=== PATIENT | female | born 1960 | race Caucasian/White ===

== ENCOUNTER → 2018-03-23 | Outpatient (CLI) | payer OTHER ==
[~2018-03-23] MED LIST: ALBUTEROL INHAL17 GM IH; AZITHROMYCIN; NORCO 5-325 TA1 EACH PO
== END ==
LOC: M.RAD 16:30
DX: Z12.31 Encounter for screening mammogram for malignant neoplasm of breast (principal)

== ENCOUNTER 2018-05-14 00:37 | Inpatient (IN) | payer OTHER ==
[~2018-05-14] VITALS: Ht 170.2 cm; Wt 77.6 kg
[2018-05-14 00:41] VITALS: BP 152/79
[2018-05-14] MEDS ORDERED: NITROGLYCERIN0.4 MG SUBLING (00:54)
[2018-05-14] MEDS ORDERED: ATENOLOL 100MG100 MG PO (00:55)
[2018-05-14] MEDS ORDERED: ASPIR 8181 M1 PO (00:56)
[2018-05-14] MEDS ORDERED: LIPITOR80 MG PO (00:56)
[2018-05-14] MEDS ORDERED: PLAVIX 75 MG TA75 M1 PO (00:56)
[2018-05-14 01:25] LABS: ABSOLUTE EOSINOPHILS 0.1 thou/uL (0.0-0.7); ABSOLUTE MONOCYTES 0.4 thou/uL (0.0-1.2); ABSOLUTE NEUTROPHILS 2.6 thou/uL (1.6-8.1); BASOPHILS 0.5 %; EOSINOPHILS 0.9 %; HEMATOCRIT 41.3 % (37.0-47.0); HEMOGLOBIN 13.8 gm/dL (12.0-15.0); LYMPHOCYTES 48.5 %; MCH 31.1 pg (26.0-34.0); MCHC 33.4 g/dL (28.0-37.0); MCV 93.1 fL (80.0-100.0); MONOCYTES 7.2 %; MPV 8.6 fl. (7.2-11.1); NUCLEATED RBCS 0 /100WBC; PLATELET COUNT* 280 thou/uL (150-400); POLYS 42.9 %; RBC 4.44 mil/uL (4.20-5.00); WBC 6.1 thou/uL (4.0-11.0)
[2018-05-14 01:35] LABS: PROTIME 10.7 Seconds (9.20-11.50)
[2018-05-14 02:03] LABS: URINE BILIRUBIN NEGATIVE (Negative); URINE BLOOD TRACE (Negative); URINE CLARITY CLEAR; URINE COLOR YELLOW; URINE GLUCOSE-RANDOM NEGATIVE (Negative); URINE KETONES NEGATIVE (Negative); URINE LEUKOCYTES-REFLEX TRACE (Negative); URINE NITRITE-REFLEX NEGATIVE (Negative); URINE PROTEIN NEGATIVE (Negative); URINE SPECIFIC GRAVITY <= 1.005 (1.005-1.030); URINE UROBILINOGEN 0.2 E.U./dl (0.2-1.0)
[2018-05-14 03:27] LABS: ALBUMIN 3.9 g/dL (3.4-5.0); CALCIUM 9.1 mg/dL (8.5-10.1); POTASSIUM 3.5 mmol/L (3.5-5.1); TOTAL BILIRUBIN 0.3 mg/dL (<0.1-1.0); TOTAL PROTEIN 6.6 g/dL (6.4-8.2)
[2018-05-14 03:39] LABS: CASTS None Seen /LPF (None Seen); SQUAMOUS >10 Many /LPF (0-3); URINE WBC-REFLEX 0-5 Rare /HPF (0-5)
[2018-05-14 03:40] LABS: BACTERIA-REFLEX 1-9 Few /HPF (None Seen); CRYSTALS None Seen /LPF (None Seen); URINE RBC 0-2 Rare /HPF (0-2)
[2018-05-14 03:57] LABS: INFLUENZA A ANTIGEN None Detected (None Detect); INFLUENZA B ANTIGEN None Detected (None Detect)
--- NOTE | 2018-05-14 04:29 | NUR ---
PT ASSISTED TO BATHROOM WITH STEADY GAIT. REPORTS FEELING A LITTLE NAUSEATED DUE TO THE NITRO PASTE. DR. [place] NOTIFIED, AND ORDERS RECEIVED TO REMOVED THE NITRO PASTE.
[2018-05-14 07:28] VITALS: BP 117/54
--- NOTE | 2018-05-14 09:54 | NUR ---
PT GIVEN REGULAR DIET BREAKFAST TRAY.
--- NOTE | 2018-05-14 10:09 | NUR ---
DR. ARREGUIN ORDERED PT'S MORNING MEDICATIONS, PHARMACY PREPARED THESE MEDICATIONS AND THEY WERE ADMINISTERED ONCE AVAILABLE FROM PHARMACY.
[2018-05-14 10:32] VITALS: BP 117/54
--- NOTE | 2018-05-14 12:33 | NUR ---
PT ADMITTED FROM ED WITH CHEST PAIN THAT STRATED YESTERDAY AFTERNOON. PT REPORTS IT IS WORSE AFTER EATING. PAIN CURRENTLY REPORTED 5/10 BURNING EPIGASTRIC THAT STABS THROUGH TO BACK. TELE SR, HRR. PT UP INDEPENDENTLY IN ROOM, ABLE TO MAKE NEEDS KNOWN, CALL LIGHT IN REACH
--- NOTE | 2018-05-14 14:20 | NUR ---
pt leaving ama. pt signed ama form and understands risks involved.
--- NOTE | 2018-05-14 14:40 | NUR ---
pt has now agreed to stay and follow through with treatment.
[2018-05-14 15:31] LABS: APTT 25.6 Seconds (25.0-31.3); PROTIME 10.6 Seconds (9.20-11.50)
[2018-05-14 15:39] LABS: CHOLESTEROL 123 mg/dL (<200); HDL CHOLESTEROL 55 mg/dL (>40); LDL CHOLESTEROL 52 mg/dL (<100); TC:HDL 2.2 Ratio (Not establshd); TRIGLYCERIDE 81 mg/dL (<150); VLDL 16 mg/dL (<40)
[2018-05-14 15:42] LABS: SERUM ASSESSMENT Clear
[2018-05-14 16:00] VITALS: BP 101/68; BP 118/55
--- NOTE | 2018-05-14 18:38 | NUR ---
PT REPORTS FEELING MUCH BETTER AFTER MEDICATIONS GIVEN. PT TOLERATED MEALS WITHOUT C/O. PT ABLE TO MAKE NEEDS KNOWN, CALL LIGHT IN REACH
[2018-05-15] VITALS: BP 115/55
[2018-05-15 04:00] VITALS: BP 108/60
[2018-05-15 04:55] LABS: ABSOLUTE EOSINOPHILS 0.1 thou/uL (0.0-0.7); ABSOLUTE LYMPHOCYTES 2.1 thou/uL (0.8-5.3); ABSOLUTE MONOCYTES 0.3 thou/uL (0.0-1.2); ABSOLUTE NEUTROPHILS 1.5 thou/uL (1.6-8.1); BASOPHILS 0.5 %; EOSINOPHILS 1.5 %; LYMPHOCYTES 52.6 %; MCH 31.3 pg (26.0-34.0); MCHC 33.3 g/dL (28.0-37.0); MONOCYTES 8.6 %; MPV 8.3 fl. (7.2-11.1); NUCLEATED RBCS 0 /100WBC; PLATELET COUNT* 231 thou/uL (150-400); POLYS 36.8 %; RBC 4.15 mil/uL (4.20-5.00)
[2018-05-15 05:10] LABS: CREATININE 0.8 mg/dL (0.6-1.3); POTASSIUM 4.2 mmol/L (3.5-5.1)
[2018-05-15 08:18] VITALS: BP 121/55
--- NOTE | 2018-05-15 08:25 | NUR ---
PT REFUSES CATH TODAY. MACHINE TENDER MADE AWARE
--- NOTE | 2018-05-15 11:00 | EKG ---
[place] [address] ELECTROCARDIOGRAM REPORT Name: EDUARD TRIANA Room: [address] ADM IN .R.#: [id number] Admission: 05/14/18 Attend Phys: Aziza Gaming MD Discharge: Date of : 62 Report #: [id number] THIS REPORT FOR: //name// [facility] ED Test Date: 2018-05-14 Test Time: 00:46:05 Pat Name: EDUARD TRIANA Department: Room: [facility] Gender: F Centre[employer] Radio Operator: AP : 1960 Requested By: Kelly Suero Order Number: [id number] MD: Amandeep Moralez Measurements Intervals [place] Rate: 91 P: 61 ID: 148 QRS: 61 QRSD: 104 T: 57 QT: 383 QTc: 472 Interpretive Statements Sinus rhythm Left atrial enlargement RSR' in V1 or V2, right VCD or RVH Compared to ECG 09/01/2010 04:47:28 no change Electronically Signed On 05-15-2018 10:59:58 BIOMECHANICAL ENGINEER by Amandeep Moralez [email or web address] <ELECTRONICALLY SIGNED> By: Amandeep Moralez MD, [facility] 05/15/18 1059 0046 0046 Amandeep Moralez MD, [facility] /EPI
[2018-05-15] MEDS ORDERED: PANTOPRAZOLE SO40 M1 PO (11:31)
[2018-05-15 11:37] VITALS: BP 121/55
--- NOTE | 2018-05-15 11:54 | NUR ---
PT DC'D HOME WITH ALL BELONGINGS. PT GIVEN 1 RX. PT DENIED PAIN OR DISCOMFORT. PT ACKNOWLEDGED DC INSTRUCTIONS AND MEDICATIONS
--- NOTE | 2018-05-17 12:35 | CON ---
[address] [address] CONSULTATION Name: TRIANAEDUARDSUKH SHERMAN Room: [address] IN .R.#: [id number] Admission: 05/14/18 Attend Phys: Aziza Gaming MD Discharge: 05/15/18 Date of : 62 Report #: [id number] THIS REPORT FOR: //name// CC: DR EVAN NIEVES physician/PCP Aziza Gaming DATE OF SERVICE: 05/14/2018 HISTORY OF PRESENT ILLNESS: The patient is a 57-year-old single white female who I was asked to see in the hospital day after she had an episode of chest pain. The old records are not available. The patient has not previously been here to [facility]. She does have a long history of hypertension. Last year, she was having intermittent chest pain. She apparently had a stress test at [facility] that showed no significant abnormalities. However, she has visited a friend last June at [facility] in [facility]. She had an episode of chest pain. She was admitted. She underwent a cardiac catheterization from the right radial artery. She is found to have a 95% stenosis of a vessel. She has a single drug-eluting stent placed. She is placed on aspirin and Plavix. She had done well since that time. She does go to the gym on a regular basis. Recently, however, she has had intermittent chest pressure. It goes into her shoulder. It can make her diaphoretic. Yesterday, she had an episode and a friend brought her to the Emergency Room last night. She was admitted and I was asked to see her for further evaluation and treatment. She denied the pain being related to food. She has had no recent trauma to her chest. She has had no bleeding, cough. She denies exertional dyspnea, palpitations or syncope. PAST MEDICAL HISTORY: She has had previous tubal ligation. She had a breast lump removed in the past that showed cancer. She was treated with radiation therapy and chemotherapy years ago. She has a history of hypertension, hyperlipidemia. MEDICATIONS: Include Plavix, aspirin, atenolol, Lipitor. ALLERGIES: She has no known drug allergies. FAMILY HISTORY: Mother had congestive heart failure. SOCIAL HISTORY: She is , lives in [place]. She works in sales. No smoking. Rarely drinks alcohol. REVIEW OF SYSTEMS: She had no history of stroke, asthma, peptic ulcer disease, liver disease, kidney disease, cancer other than breast cancer. She has no history of psychiatric illness. No chronic skin condition. PHYSICAL EXAMINATION: [place] [address] CONSULTATION Name: EDUARD TRIANA Room: [address]#: [id number] Admission: 05/14/18 Attend Phys: Aziza Gaming MD Discharge: 05/15/18 Date of : 62 Report #: [id number] GENERAL: Revealed a middle-aged female, lying in bed. She appeared in no acute distress. VITAL SIGNS: She had a blood pressure of 120/60, pulse 70. She is afebrile. HEENT: She was anicteric, conjunctiva pink, mucous members moist. NECK: Veins nondistended. No carotid bruits. Neck supple. CHEST: Clear to auscultation. CARDIOVASCULAR: Regular rate and rhythm, no murmur. ABDOMEN: Soft, nontender. EXTREMITIES: Had no edema. Posterior tibial pulse 2+ bilaterally. SKIN: Warm, dry. NEUROLOGIC: Nonfocal. LYMPH: No adenopathy. MUSCULOSKELETAL: No joint effusion. Her work up last night, unfortunately there is no ECG in her chart at this time to review. Her chest x-ray done in the Emergency Room last night, normal heart size, clear lung stearns. LABORATORY DATA: Sodium 141, BUN 21, creatinine 1.0, glucose 113. Troponin 0.06. BNP 437. White blood cell count 6.1, hemoglobin 13.8. IMPRESSION AND RECOMMENDATIONS: 1. Chest pain. Possible angina. Previous stent. Recommend repeat cardiac catheterization. 2. Hypertension. The patient is on beta brigida. 3. Hyperlipidemia. The patient is on a statin drug. 4. History of breast cancer. <ELECTRONICALLY SIGNED> By: Amandeep Moralez MD, FACC 05/17/18 1235 [id number] Moralez MD, FACC /nt
== END 2018-05-15 11:50 | disposition home or self-care (01) | DRG 313 ==
LOC: M.ERS 00:37 → M.TBA-ER 03:24 → M.2W 10:42
PROVIDERS: Emergency Medicine; Internal Medicine; ADMIT Family Medicine
DX: R07.9 Chest pain, unspecified (principal); I10 Essential (primary) hypertension; E78.5 Hyperlipidemia, unspecified; I25.10 Atherosclerotic heart disease of native coronary artery without angina pectoris; T50.8X5A Adverse effect of diagnostic agents, initial encounter; Z85.3 Personal history of malignant neoplasm of breast; Z92.3 Personal history of irradiation; Z92.21 Personal history of antineoplastic chemotherapy; Z82.49 Family history of ischemic heart disease and other diseases of the circulatory system; Z95.5 Presence of coronary angioplasty implant and graft

== ENCOUNTER → 2018-08-11 | Outpatient (CLI) | payer OTHER ==
[~2018-08-11] MED LIST changes: +ASPIR 8181 M1 PO; +ATENOLOL 100MG100 MG PO; +LIPITOR80 MG PO; +NITROGLYCERIN0.4 MG SUBLING; +PANTOPRAZOLE SO40 M1 PO; +PLAVIX 75 MG TA75 M1 PO
== END ==
LOC: M.RAD 09:50
DX: R92.1 Mammographic calcification found on diagnostic imaging of breast (principal); Z85.3 Personal history of malignant neoplasm of breast

== ENCOUNTER → 2019-05-23 | Outpatient (CLI) | payer OTHER | LOC: M.RAD 05-21 16:30 | DX: Z12.31 Encounter for screening mammogram for malignant neoplasm of breast (principal) ==

== ENCOUNTER → 2020-02-13 | Outpatient (CLI) | payer OTHER | LOC: M.ULTRA 13:00 | PROVIDERS: ATTEND Obstetrics & Gynecology | DX: N63.21 Unspecified lump in the left breast, upper outer quadrant (principal); Z85.3 Personal history of malignant neoplasm of breast; I25.10 Atherosclerotic heart disease of native coronary artery without angina pectoris ==

== ENCOUNTER → 2020-09-04 | Outpatient (CLI) | payer OTHER | LOC: M.RAD 15:54 | PROVIDERS: ATTEND Obstetrics & Gynecology | DX: Z12.31 Encounter for screening mammogram for malignant neoplasm of breast (principal) ==